=== PATIENT | male | born 1955 | race Caucasian/White ===

== ENCOUNTER 2018-08-09 20:38 | Emergency (ER) | payer OTHER ==
[~2018-08-09] VITALS: Ht 177.8 cm; Wt 79.4 kg
[2018-08-09] MEDS ORDERED: IBUPROFEN 800800 M1 PO (20:45)
[2018-08-09] MEDS ORDERED: NORCO 7.5-3251 EACH PO (22:18)
[2018-08-09 22:52] VITALS: BP 147/91
== END 2018-08-09 22:53 | disposition home or self-care (01) ==
LOC: M.ERS 20:38
DX: S43.085A Other dislocation of left shoulder joint, initial encounter (principal); W18.39XA Other fall on same level, initial encounter; Y93.89 Activity, other specified; Y92.89 Other specified places as the place of occurrence of the external cause; Y99.8 Other external cause status

== ENCOUNTER → 2018-08-14 | Outpatient (CLI) | payer OTHER ==
[~2018-08-14] MED LIST: IBUPROFEN 800800 M1 PO; NORCO 7.5-3251 EACH PO
== END ==
LOC: M.MRI → EDBD 07:30 → M.MRI 07:30
DX: M75.102 Unspecified rotator cuff tear or rupture of left shoulder, not specified as traumatic (principal); M19.012 Primary osteoarthritis, left shoulder